=== PATIENT | female | born 1985 | race Caucasian/White ===

== ENCOUNTER 2016-06-19 19:07 | Emergency (ER) | payer MEDICARE, MEDICAID ==
[~2016-06-19 19:07] MED LIST: ABILIFY PO; ABILIFY10 MG PO; ABILIFY5 MG PO; ADVIL200 M1 PO; AMBIEN10 MG PO; AMOXICILLIN500 M PO; ANTIDEPRESSENT PO; ATIVAN1 M2 PO; ATIVAN1 MG PO; BRINTELLIX10 M1 PO; CALCIUM 500 +1 EAC2 PO; CELEXA20 M1 PO; CELONTIN300 MG PO; CITALOPRAM PO; CORTISPORIN EAR10 ML OT; CYTOMEL5 MC1 PO; DEPLIN15 MG PO; DIAZEPAM GEL RC; DILANTIN100 MG; DILANTIN100 MG PO; ETHOSUXIMIDE; FLOXIN10 ML OT; KEFLEX500 MG PO; LAMICTAL XR200 MG PO; LAMICTAL100 MG PO; LEVAQUIN500 MG PO; MINIPRESS2 M1 PO; MOTRIN400 MG PO; MOTRIN600 MG PO; MULTIVITAMIN1 TAB PO; NATURE-THROID65 M1 PO; NORCO 5/325 TAB1 TAB PO; OMEPRAZOLE20 M4 PO; ONFI10 MG PO; ONFI20 MG PO; PEN-VEE K500 MG PO; PROZAC20 M1 PO; PROZAC20 M2 PO; TOPAMAX100 M2 PO; TOPAMAX100 MG PO; TOPAMAX25 MG; TYLENOL325 M1 PO; TYLENOL500 MG PO; VENTOLIN HFA18 G2 INH; VESTURA 3 MG-01 EAC1 PO; VICODIN 5/500 T1 TAB PO; VIIBRYD40 M1 PO; VITAMIN D35000 UNI2 PO; VYVANSE20 MG PO; ZARONTIN250 MG PO; ZOFRAN ODT4 MG/UDTAB PO; ZOLOFT PO; ZOLOFT100 MG PO; ZONEGRAN100 MG PO; [UNRECOGNIZED DRUG - OTHER]; [UNRECOGNIZED DRUG - OTHER]; [UNRECOGNIZED DRUG - OTHER]; [UNRECOGNIZED DRUG - OTHER] TP
[2016-06-19] MEDS ORDERED: SYNTHROID75 MC1 PO (20:41)
[2016-06-19] MEDS ORDERED: BRINTELLIX10 M1 PO (20:42)
[2016-06-19 22:01] LABS: ANION GAP 14 mmol/L (0-20); BLOOD UREA NITROGEN 13 mg/dl (6-24); CALCIUM 8.9 mg/dl (8.5-10.5); CARBON DIOXIDE-VENOUS 21 mmol/L (22-32); CHLORIDE 111 mmol/l (96-110); GLUCOSE 82 mg/dL (70-110); POTASSIUM 3.6 mmol/L (3.7-5.1); SODIUM 142 mmol/L (135-145); eGFR VALUE FOR BLACK >90 mL/Min
== END 2016-06-19 22:46 ==
LOC: EDMED 19:07
PROVIDERS: Emergency Medicine
DX: G40.909 Epilepsy, unspecified, not intractable, without status epilepticus (principal); S06.0X0A Concussion without loss of consciousness, initial encounter; E86.0 Dehydration; J45.909 Unspecified asthma, uncomplicated; K21.9 Gastro-esophageal reflux disease without esophagitis; E07.9 Disorder of thyroid, unspecified; Z79.890 Hormone replacement therapy; Z79.899 Other long term (current) drug therapy; X58.XXXA Exposure to other specified factors, initial encounter
CPT/HCPCS: J1885; J7030

== ENCOUNTER 2016-06-22 15:23 | Emergency (ER) | payer MEDICARE, MEDICAID ==
[~2016-06-22 15:23] MED LIST changes: +SYNTHROID75 MC1 PO
== END 2016-06-22 16:12 ==
LOC: EDMED 15:23
DX: G43.909 Migraine, unspecified, not intractable, without status migrainosus (principal); G40.909 Epilepsy, unspecified, not intractable, without status epilepticus; F32.9 Major depressive disorder, single episode, unspecified; F41.9 Anxiety disorder, unspecified; F17.210 Nicotine dependence, cigarettes, uncomplicated; Z79.51 Long term (current) use of inhaled steroids; Z79.890 Hormone replacement therapy; Z79.899 Other long term (current) drug therapy
CPT/HCPCS: J1200; J1885; J2765; J7030